=== PATIENT | female | born 1945 | race Hispanic/Latino ===

== ENCOUNTER 2018-07-17 17:57 | Inpatient (IN) | payer MEDICARE ==
[2018-07-17] MEDS ORDERED: Sodium Chloride 0.9% 1,000 ML IV ONE (19:46)
--- NOTE | 2018-07-17 19:47 | C.PDOC ---
History Of Present Illness 72 year old female presents with RUQ pain for the past 2 days. Patient states the pain has been constant, not exacerbated or alleviated with anything; she tried tums with no relief. Denies fever, nausea, vomiting, diarrhea, or other symptoms. Patient has no Hx of similar complaints, Hx of liver or gall bladder disease, or Hx of abdominal surgery. Time Seen by Provider: 07/17/18 19:17 Chief Complaint (Nursing): Abdominal Pain History Per: Patient History/Exam Limitations: no limitations Onset/Duration Of Symptoms: Days (2) Current Symptoms Are (Timing): Still Present Location Of Pain/Discomfort: RUQ Radiation Of Pain To:: None Quality Of Discomfort: Unable To Describe Associated Symptoms: denies: Fever, Nausea, Vomiting, Diarrhea Exacerbating Factors: None Alleviating Factors: None Recent travel outside of the [place]: No Abnormal Vaginal Bleeding: No Past Medical History Reviewed: Historical Data, Nursing Documentation, Vital Signs Vital Signs: Last Vital Signs Temp 98.3 F 07/17/18 17:58 Pulse 91 H 07/17/18 17:58 Resp 18 07/17/18 17:58 BP 168/88 H 07/17/18 17:58 Pulse Ox 96 07/17/18 17:58 - Medical History PMH: HTN, Mitral Valve Prolapse Family History: States: Unknown Family Hx - Social History Hx Alcohol Use: No Hx Substance Use: No - Immunization History Hx Tetanus Toxoid Vaccination: Yes Hx Influenza Vaccination: Yes Hx Pneumococcal Vaccination: Yes Review Of Systems Constitutional: Negative for: Fever, Chills Cardiovascular: Negative for: Chest Pain, Palpitations Respiratory: Negative for: Cough, Shortness of Breath Gastrointestinal: Positive for: Abdominal Pain. Negative for: Nausea, Vomiting, Diarrhea Genitourinary: Negative for: Dysuria, Hematuria Musculoskeletal: Negative for: Back Pain Skin: Negative for: Rash Neurological: Negative for: Weakness, Numbness Physical Exam - Physical Exam Appears: Non-toxic Skin: Normal Color, Warm Head: Atraumatic, Normacephalic Eye(s): bilateral: Normal Inspection Oral Mucosa: Moist Neck: Normal, Supple Chest: Symmetrical, No Tenderness Cardiovascular: Rhythm Regular Respiratory: Normal Breath Sounds, No Rales, No Rhonchi, No Wheezing Gastrointestinal/Abdominal: Soft, Tenderness (right sided), No Guarding, No Rebound Back: No CVA Tenderness Neurological/Psych: Oriented x3, Normal Speech ED Course And Treatment - Laboratory Results Result Diagrams: 07/17/18 20:01 07/17/18 20:01 O2 Sat by Pulse Oximetry: 96 (Room air) Pulse Ox Interpretation: Normal - CT Scan/US CT abd/pel Other Rad Studies (CT/US): Read By Radiologist, Radiology Report Reviewed CT/US Interpretation: EXAM: CT Abdomen and Pelvis with IV contrast. CLINICAL HISTORY: Abd pain. TECHNIQUE: Axial computed tomography images of the abdomen and pelvis with intravenous contrast. 0.00 mGy-cm. CONTRAST: With; 100MLS OMNI 350. COMPARISON: None provided. FINDINGS: LUNG BASES: 7 mm nodule in the right lower lobe posteriorly on series 2, image 11. Per Fleischner 2017 guidelines, This could be followed up in approximately 6 months if clinically indicated. LIVER: There is diffuse fatty infiltration of liver. GALLBLADDER AND BILE DUCTS: The gallbladder appears within normal limits. No radioopaque gallstones are seen. No biliary ductal dilatation is evident. PANCREAS: Unremarkable. SPLEEN: Small splenule is noted in the left upper quadrant. ADRENAL GLANDS: Unremarkable. KIDNEYS, URETERS, AND BLADDER: Bladder is predominately decompressed, somewhat limiting evaluation. STOMACH AND BOWEL: There is a moderately large hiatal hernia containing a significant portion of the stomach. The stomach is predominantly decompressed which somewhat limits evaluation. Wall thickening versus decompression involving portions of the rectum. Is difficult to exclude a small mass in this region. Consider direct visualization with colonoscopy or followup imaging if indicated. There is a short segment of wall thickening and pericolonic inflammation at the hepatic flexure of the colon. This may represent focal colitis, diverticulitis, or mass with secondary inflammation. Please correlate clinically. If indicated, this could be further evaluated with colonoscopy or followup imaging after appropriate antimicrobial therapy as indicated. No evidence for bowel obstruction. APPENDIX: No evidence of acute appendicitis on CT examination. PERITONEUM: No free fluid. No free air. LYMPH NODES: No lymphadenopathy is evident. REPRODUCTIVE: The uterus is atrophic or absent. VASCULATURE: Mild atherosclerotic calcification of the abdominal aorta and branches. BONES: Mild multilevel degenerative spine changes. IMPRESSION: 1. There is a moderately large hiatal hernia containing a significant portion of the stomach. 2. 7 mm nodule in the right lower lobe posteriorly on series 2, image 11. Per Fleischner 2017 guidelines, This could be followed up in approximately 6 months if clinically indicated. 3. There is diffuse fatty infiltration of liver. 4. Wall thickening versus decompression involving portions of the rectum. Is difficult to exclude a small mass in this region. Consider direct visualization with colonoscopy or followup imaging if indicated. 5. There is a short segment of wall thickening and pericolonic inflammation at the hepatic flexure of the colon. This may represent focal colitis, diverticulitis, or mass with secondary inflammation. Please correlate clinically. If indicated, this could be further evaluated with colonoscopy or followup imaging after appropriate antimicrobial therapy as indicated. 6. Additional and incidental findings as described above. Medical Decision Making Medical Decision Making: Plan: * CT abd/pel * Blood work * IV fluids * Toradol Labs and CT reviewed, results discussed with patient including need for colonoscopy and followup for RLL lung nodule. She states that pain has eased but she is still concerned and feels uncomfortable going home. Will admit for further evaluation. Case discussed with Dr. Escobar, medicine international affairs vice president, who accepts patient for admission. Zosyn ivpb ordered for possible colitis/diverticulitis as noted on CT, although patient reports that her pain is more right sided. Disposition - Disposition Disposition: HOSPITALIZED Disposition Time: 22:19 Condition: GOOD Forms: [facility] (Romansh) - Clinical Impression Clinical Impression: Abdominal pain - Scribe Statement The provider has reviewed the documentation as recorded by the Scribe Rodolfo Medrano All medical record entries made by the Patriceibe were at my direction and personally dictated by me. I have reviewed the chart and agree that the record accurately reflects my personal performance of the history, physical exam, medical decision making, and the department course for this patient. I have also personally directed, reviewed, and agree with the discharge instructions and disposition.
[2018-07-17] MEDS ORDERED: Sodium Chloride 0.9% 1,000 ML ONE (20:03)
[2018-07-17 20:08] LABS: BASO % 0.5 % (0.0-2.0); EOS # 0.1 K/uL (0.0-0.7); EOS % 0.9 % (0.0-4.0); HEMOGLOBIN 12.9 g/dL (11.0-16.0); LYMPH # 1.2 K/uL (1.0-4.3); LYMPH % 16.1 % (20.0-40.0); MEAN CELL VOLUME 86.6 fL (81.0-99.0); MEAN CORPUSCULAR HEMOGLOBIN 28.6 pg (27.0-31.0); MEAN PLATELET VOLUME 8.6 fL (7.2-11.7); MONO # 0.4 K/uL (0.0-0.8); MONO % 5.5 % (0.0-10.0); NEUT # 5.7 K/uL (1.8-7.0); NRBC % 0.1 % (0.0-2.0); RBC 4.52 Mil/uL (3.80-5.20); RED CELL DISTRIBUTION WIDTH 14.5 % (11.5-14.5); WHITE BLOOD COUNT 7.3 K/uL (4.8-10.8)
[2018-07-17 20:29] LABS: ALB/GLOB RATIO 1.1 (1.0-2.1); ALBUMIN 4.4 g/dL (3.5-5.0); ALT/SGPT 33 U/L (9-52); AST/SGOT 43 U/L (14-36); BLOOD UREA NITROGEN 15 mg/dL (7-17); CALCIUM 9.7 mg/dl (8.6-10.4); GFR NON-AFRICAN AMERICAN > 60; LIPASE 64 U/L (23-300)
[2018-07-17] MEDS ORDERED: Iohexol 350mg/ml 100 ML ONE (20:49)
[2018-07-17] MEDS ORDERED: Piperacillin/Tazobact 3.375 gm 100 ML IVPB STA (22:20)
[2018-07-17] MEDS ORDERED: HYDROmorphone 1 mg/ml ISec IVP PRN (22:23)
[2018-07-17] MEDS ORDERED: Piperacillin/Tazobact 3.375 gm 100 ML IVPB ONE (22:40)
[2018-07-17] MEDS ORDERED: metroNIDAZOLE IV 500 mg/100 ml 500 MG/100 ML BAG ONE (23:22)
[2018-07-17] MEDS: metroNIDAZOLE IV 500 mg/100 ml 500 MG/100 ML BAG IVPB SCH (23:23)
[2018-07-18] MEDS ORDERED: Ciprofloxacin 400mg/200ml D5W 400 MG/200 ML BAG IVPB ONE (00:33)
[2018-07-18] MEDS: Ciprofloxacin 400mg/200ml D5W 400 MG/200 ML BAG IVPB SCH ×3 (01:20→22:25)
[2018-07-18] MEDS: metroNIDAZOLE IV 500 mg/100 ml 500 MG/100 ML BAG IVPB SCH ×3 (06:29→22:24)
--- NOTE | 2018-07-18 07:35 | CP.PCM.PN ---
Subjective - Date & Time of Evaluation Date of Evaluation: 07/18/18 Time of Evaluation: 07:29 - Subjective Subjective: PGY-[address] Escobar's service Pt seen and examined at bedside. Nursing reports no acute events overnight. She reports her abdominal pain has improved since starting antibiotics. Rates pain as 2-3/10, and remains right sided in location. No vomiting or diarrhea overnight. __ Patient is a 72 yo female with PMHx of HTN presenting yesterday with right sided abdominal pain. States pain came on suddenly two days ago, and has been constantly located on right side of abdomen. Attempted OTC antacids without relief. Denies fever, chills, blood per rectum, diarrhea, or vomiting. Objective - Vital Signs/Intake and Output Vital Signs (last 24 hours): Temp Pulse Resp BP Pulse Ox 97.5 F L 73 20 103/65 94 L 07/18/18 02:20 07/18/18 02:20 07/18/18 02:20 07/18/18 02:20 07/18/18 02:20 - Medications Medications: Current Medications Hydromorphone HCl (Dilaudid) 1 mg IVP Q6H PRN PRN Reason: Pain, severe (8-10) Ciprofloxacin (Cipro 400mg/200ml Dsw) 400 mg in 200 mls @ 133 mls/hr IVPB Q12H DEANDRE; Protocol Last Admin: 07/18/18 01:20 Dose: 133 mls/hr Metronidazole (Flagyl) 500 mg in 100 mls @ 100 mls/hr IVPB Q8H DEANDRE; Protocol Last Admin: 07/18/18 06:29 Dose: 100 mls/hr Zolpidem Tartrate (Ambien) 5 mg PO HS PRN PRN Reason: Insomnia - Labs Labs: 07/17/18 20:01 07/17/18 20:01 - Constitutional Appears: Non-toxic, No Acute Distress - Head Exam Head Exam: ATRAUMATIC, NORMAL INSPECTION - Eye Exam Eye Exam: EOMI. absent: Scleral icterus Pupil Exam: PERRL - ENT Exam ENT Exam: Mucous Membranes Moist - Neck Exam Neck Exam: Full ROM - Respiratory Exam Respiratory Exam: Clear to Ausculation Bilateral, NORMAL BREATHING PATTERN. absent: Decreased Breath Sounds - Cardiovascular Exam Cardiovascular Exam: REGULAR RHYTHM, +S1, +S2 - GI/Abdominal Exam GI & Abdominal Exam: Soft, Tenderness (Right sided ), Normal Bowel Sounds. absent: Distended, Guarding - Extremities Exam Extremities Exam: Normal Inspection. absent: Pedal Edema - Back Exam Back Exam: absent: CVA tenderness (L), CVA tenderness (R) - Neurological Exam Neurological Exam: Alert, Awake, Oriented x3 - Psychiatric Exam Psychiatric exam: Normal Affect, Normal Mood - Skin Skin Exam: Normal Color, Warm Assessment and Plan - Assessment and Plan (Free Text) Plan: Colitis/Diverticulitis? Admit to med/surg Afebrile, Ct A/P (07/17/18): 1. There is a moderately large hiatal hernia containing a significant portion of the stomach. 2. 7 mm nodule in the right lower lobe posteriorly on series 2, image 11. Per Fleischner 2017 guidelines, This could be followed up in approximately 6 months if clinically indicated. 3. There is diffuse fatty infiltration of liver. 4. Wall thickening versus decompression involving portions of the rectum. Is difficult to exclude a small mass in this region. Consider direct visualization with colonoscopy or followup imaging if indicated. 5. There is a short segment of wall thickening and pericolonic inflammation at the hepatic flexure of the colon. This may represent focal colitis, diverticulitis, or mass with secondary inflammation. Please correlate clinically. If indicated, this could be further evaluated with colonoscopy or followup imaging after appropriate antimicrobial therapy as indicated Lipase 64 Dr. Mcgill, GI - help appreciated -f/u reccs Cipro 400mg IV Q12H (Start 07/17/18; Day 2) Metronidazole 500mg IV QQ8H (start 07/17/18; Day 2) -Zosyn ONCE IN ED Hydromorphone 1mg IV Q6H PRN Lung nodule, RLL Visualized on CT above f/u CT in 6 months per radiology recommendation Fatty Liver Disease Visualized on CT above AST 43, ALT 33 Hiatal hernia/GERD Seen on CT imaging Protonix 40mg PO Insomnia Ambien 5mg PO HS PPX Liquid Diet Protonix 40mg PO SCDs Michael Castaneda PGY-[address] Escobar
--- NOTE | 2018-07-18 10:31 | CT ---
Date of service: 2018-07-17 21:18:20 PROCEDURE: CT scan abdomen pelvis HISTORY: Abdominal pain COMPARISON: None. TECHNIQUE: Contiguous axial images of the abdomen and pelvis performed in standard fashion following intravenous injection of approximately 100 cc Omnipaque 350 contrast material. Additional 2D sagittal and coronal reformats generated. Radiation dose: Total exam DLP = 471.17 mGy-cm. This CT exam was performed using one or more of the following dose reduction techniques: Automated exposure control, adjustment of the mA and/or kV according to patient size, and/or use of iterative reconstruction technique. FINDINGS: LOWER THORAX: Heart size within range of normal. No significant pericardial effusion. There is a large hiatal hernia. There appears to be mild linear atelectasis and or scarring seen both lung bases including the middle lobe and lingular regions. Additionally, there is an approximately 9 mm elliptical shaped pleural-based nodule which appears to be partially surrounded by a small bleb. Follow-up CT scan of the chest recommended for further evaluation. Clear without focal consolidation. Some minimal LIVER: Liver exhibits relatively normal size with mild diffuse fatty hepatic infiltration. No obvious hepatic mass collection or calcification. Portal and splenic veins are opacified. GALLBLADDER AND BILE DUCTS: Gallbladder physiologically distended. No evidence of intraluminal gallbladder calculi. PANCREAS: Pancreas appears slightly atrophic and fatty replaced. There are no pancreatic masses collections or calcifications. SPLEEN: Unremarkable. No splenomegaly. Small splenule seen adjacent to the anteromedial and inferior main body of the spleen. ADRENALS: No adrenal lesions are identified. KIDNEYS AND URETERS: Kidneys demonstrate relatively symmetric nephrograms. No evidence of nephrolithiasis or hydronephrosis. BLADDER: Urinary bladder is physiologically distended. No evidence of intraluminal urinary bladder calculi. REPRODUCTIVE: Hysterectomy. APPENDIX: Appendix is not seen with certainty however no evidence to suggest acute appendicitis. BOWEL: Evaluation of the bowel is slightly limited due to the lack of oral contrast material. As mentioned above, there is a large hiatal hernia. Visualized loops of small bowel exhibit normal contour and caliber. No evidence of acute mechanical small bowel obstruction. There is wall thickening of the mid and distal ascending colon/hepatic flexure and proximal transverse colon with surrounding mesenteric infiltration and most likely representing a nonspecific colitis or less likely diverticulitis however follow-up CT scan following treatment to assess for resolution and exclude the possibility of an invasive wall lesion including but not limited to colon carcinoma. PERITONEUM: No gross free intraperitoneal air. Tiny fat containing umbilical hernia. Small bilateral fat containing inguinal hernias. LYMPH NODES: Unremarkable. No enlarged lymph nodes. VASCULATURE: Unremarkable. No aortic aneurysm. Minimal aortic atherosclerotic calcification or mural plaque present. BONES: Minor multilevel degenerative spondylosis of the lower thoracic and lumbar spine. There are no acute compression fractures no retropulsed fragments. OTHER FINDINGS: None. IMPRESSION: Localized wall thickening and surrounding infiltration involving short segment of the mid to distal at ascending colon and hepatic flexure and proximal transverse colon. Findings likely represent a colitis or less likely diverticulitis however intrinsic/invasive wall lesion including but not limited to colon carcinoma not excluded. Repeat CT scan following treatment recommended to assess resolution. 9 mm nodule right lung base. Recommend follow-up CT scan of the chest further evaluation. Large hiatal hernia. Mild diffuse fatty hepatic infiltration. This report was placed in PA review folder for follow up
[2018-07-18 11:10] LABS: BASO % 0.4 % (0.0-2.0); EOS # 0.1 K/uL (0.0-0.7); EOS % 1.3 % (0.0-4.0); LYMPH # 1.1 K/uL (1.0-4.3); LYMPH % 20.4 % (20.0-40.0); MEAN CELL VOLUME 86.6 fL (81.0-99.0); MEAN CORPUSCULAR HEMOGLOBIN 29.1 pg (27.0-31.0); MEAN CORPUSCULAR HGB CONC 33.6 g/dL (33.0-37.0); MEAN PLATELET VOLUME 8.9 fL (7.2-11.7); MONO # 0.5 K/uL (0.0-0.8); MONO % 9.4 % (0.0-10.0); NEUT # 3.6 K/uL (1.8-7.0); NEUT % 68.5 % (50.0-75.0); RBC 4.1 Mil/uL (3.80-5.20); RED CELL DISTRIBUTION WIDTH 14.8 % (11.5-14.5); WHITE BLOOD COUNT 5.3 K/uL (4.8-10.8)
[2018-07-18 11:26] LABS: ALB/GLOB RATIO 1.1 (1.0-2.1); ALBUMIN 3.8 g/dL (3.5-5.0); ALT/SGPT 18 U/L (9-52); AST/SGOT 36 U/L (14-36); BLOOD UREA NITROGEN 12 mg/dL (7-17); CALCIUM 8.8 mg/dl (8.6-10.4); GFR NON-AFRICAN AMERICAN > 60
--- NOTE | 2018-07-19 01:33 | PN ---
DATE: 07/18/2018 LOCATION: Room 651, bed B. SUBJECTIVE: This is a 72-year-old female, seen and examined initially for GI consultation on 07/17/2008, reexamined again today with intermittent period of severe crampy abdominal pain without evidence of active bleeding. No reported chest pain, palpitation or increased shortness of breath. The entire chart is reviewed including but not limited to the most recent lab and radiology study results, and today's lab results showed normal CBC as well as normal SMA-18 with normal lipase level. Initially done CAT scan of the abdomen and pelvis was reviewed, and the case discussed with the staff at length. As per the official radiology study reports, inflammatory changes seen in the ascending colon and the hepatic flexure as well as the proximal transverse colon could be secondary to ischemic colitis and/or less likely diverticulosis/diverticulitis. A small lung nodule is seen. PHYSICAL EXAMINATION: GENERAL: A 72-year-old female, awake, alert, oriented. VITAL SIGNS: Afebrile with blood pressure 130/66, pulse of 92, respiratory rate 20-22. HEENT: Pale, dry oral mucous membrane. Nonicteric sclerae. LUNGS: Few scattered crepitation. Decreased air entry at bases. HEART: Positive S1 and S2. ABDOMEN: Soft with mild generalized tenderness. No mass or organomegaly. No rebound tenderness or guarding. EXTREMITIES: Without significant clubbing, cyanosis or edema. NEUROLOGIC: No reported new neurological deficits, sensory or motor. IMPRESSION: 1. Re-exacerbation of peptic ulcer disease. 2. Acute colitis. Again the possibility of ischemic colitis was raised. However, the patient has no reported rectal bleeding which again is somewhat ischemic colitis episodes. 3. Known history of hypertension. 4. Mitral valve prolapse by history. SUGGESTIONS: 1. Continue current management. 2. Intravenous antibiotics. 3. Endoscopic evaluation of the GI tract only if the patient's symptoms persist, otherwise close observation to follow including current IV antibiotics. Farrukh Loo MD
[2018-07-19] MEDS: metroNIDAZOLE IV 500 mg/100 ml 500 MG/100 ML BAG IVPB SCH ×3 (06:40→20:41)
[2018-07-19 07:14] LABS: BASO % 0.3 % (0.0-2.0); EOS % 0.2 % (0.0-4.0); HEMOGLOBIN 11.3 g/dL (11.0-16.0); LYMPH # 1.5 K/uL (1.0-4.3); LYMPH % 22.4 % (20.0-40.0); MEAN CELL VOLUME 85.9 fL (81.0-99.0); MEAN CORPUSCULAR HEMOGLOBIN 29.1 pg (27.0-31.0); MEAN CORPUSCULAR HGB CONC 33.9 g/dL (33.0-37.0); MONO # 0.5 K/uL (0.0-0.8); MONO % 7.8 % (0.0-10.0); NEUT # 4.8 K/uL (1.8-7.0); NEUT % 69.3 % (50.0-75.0); NRBC % 0.1 % (0.0-2.0); RBC 3.87 Mil/uL (3.80-5.20); RED CELL DISTRIBUTION WIDTH 14.9 % (11.5-14.5); WHITE BLOOD COUNT 6.9 K/uL (4.8-10.8)
[2018-07-19 07:18] LABS: BLOOD UREA NITROGEN 12 mg/dL (7-17); CALCIUM 8.9 mg/dl (8.6-10.4); GFR NON-AFRICAN AMERICAN > 60
[2018-07-19 07:19] LABS: INR 1.2; PROTHROMBIN TIME 12.9 SECONDS (9.7-12.2)
[2018-07-19] MEDS: Ciprofloxacin 400mg/200ml D5W 400 MG/200 ML BAG IVPB SCH ×2 (10:08→22:50)
[2018-07-19] MEDS: Pantoprazole 40 mg EC Tab PO SCH (10:09)
--- NOTE | 2018-07-19 10:28 | PN ---
DATE: 07/19/2018 LOCATION: 651, bed B. SUBJECTIVE: This is a 72-year-old female seen and examined in rounds with complaint of still right sided abdominal pain, persistent nausea with dyspepsia of unclear etiology, but no reported active bleeding, no chest pain or palpitation. The entire chart is reviewed including, but not limited to the most recent lab and radiology study results, current and The previous medication list. Today's lab results still pending. The patient had been on Reglan p.r.n., to be placed on 5 mg IV every 6 hours, keeping in mind that the patient had abnormal CAT scan of the abdomen and pelvis. PHYSICAL EXAMINATION: GENERAL: A 72-year-old female appeared to be awake, alert, oriented. VITAL SIGNS: Afebrile, blood pressure 116/66, heart rate of 96, respiratory rate 20 to 22. HEENT: Pale, dry, oral mucous membrane. Nonicteric sclerae. LUNGS: Few scattered crepitations. Decreased air entry at bases. HEART: Positive S1 and S2. ABDOMEN: Soft. Bowel sounds are present with mid epigastric as well as right upper and middle quadrant tenderness. No mass or organomegaly. No rebound tenderness or guarding. IMPRESSION: 1. Re-exacerbation of peptic ulcer disease to rule out gastric versus duodenal ulcer. 2. Abnormal CAT scan of abdomen and pelvis indicative of acute colitis, to rule out ischemic colitis, to rule out an early phase of inflammatory bowel disease. 3. Known history of hypertension. 4. Mitral valve prolapse by history. SUGGESTIONS: 1. Continue current management. 2. Change Reglan . 3. Cancer markers. 4. Endoscopic evaluation of GI tract when the patient is more stable clinically and after IV antibiotics to be given. Further recommendations to follow. Farrukh Loo MD
[2018-07-20] MEDS: metroNIDAZOLE IV 500 mg/100 ml 500 MG/100 ML BAG IVPB SCH ×3 (06:14→21:44)
[2018-07-20] MEDS ORDERED: Bisacodyl 5mg EC Tab PO ONE (08:45)
[2018-07-20] MEDS: Pantoprazole 40 mg EC Tab PO SCH (09:30)
[2018-07-20] MEDS: Ciprofloxacin 400mg/200ml D5W 400 MG/200 ML BAG IVPB SCH ×2 (09:31→21:43)
--- NOTE | 2018-07-20 09:53 | PN ---
DATE: 07/20/2018 LOCATION: 651, bed B. SUBJECTIVE: This 72-year-old female seen and examined early in rounds with a recurrent episode of abdominal pain and nausea with less oral intake and abdominal mild distention but no reported active bleeding, chest pain, shortness of breath or palpitation. The entire chart is reviewed including but not limited to the most recent lab and radiology study results, current and the previous medication list, current and the previous medical events and today's lab results still pending. However, the patient still has low hematocrit with mildly increased PT to 12.9 with normal cancer markers. PHYSICAL EXAMINATION: GENERAL: A 72-year-old female. VITAL SIGNS: Afebrile with pulse of 102, respiratory rate 20 to 22, blood pressure 144/70. HEENT: Showed pale, dry oral mucous membrane. Nonicteric sclerae. LUNGS: Few scattered crepitation. Decreased air entry at bases. HEART: Positive S1 and S2. ABDOMEN: Soft with mild generalized tenderness, numbness or organomegaly. No rebound tenderness or guarding but midepigastric and right lower quadrant and right mid quadrant tenderness. EXTREMITIES: Without significant clubbing or edema. NEUROLOGIC: No reported new focal deficit and no reported neurological sensory or motor deficits. IMPRESSION: 1. Re-exacerbation of peptic ulcer disease, to rule out gastric versus duodenal ulcer. 2. Known history of hypertension. 3. Abnormal CAT scan of the abdomen and pelvis to rule out possible early stage of irritable bowel disease versus ischemic colitis, less likely. 4. Known history of mitral valve prolapse. SUGGESTIONS: 1. Agree with your plan. 2. Endoscopic evaluation of the upper GI tract followed by the lower GI tract after adequate preparation and when the patient is more stable clinically. 3. Further recommendations to follow post endoscopy. Farrukh Loo MD
--- NOTE | 2018-07-21 08:37 | CP.PCM.PN ---
Subjective - Date & Time of Evaluation Date of Evaluation: 07/21/18 Time of Evaluation: 08:30 - Subjective Subjective: PGY-[address] Escobar's service Pt seen and examined at bedside. Nursing reports no acute events overnight. Patient found sitting comfortably on her bed. She states her abdominal pain has "nearly resolved" and denies nausea or vomiting overnight. Tolerating liquid diet over the weekend, and denies blood in stool, fever, or chills. Pt for endoscopy this AM. Objective - Vital Signs/Intake and Output Vital Signs (last 24 hours): Temp Pulse Resp BP Pulse Ox 98.7 F 100 H 20 160/83 H 98 07/21/18 05:00 07/21/18 05:00 07/21/18 05:00 07/21/18 05:00 07/21/18 05:00 - Medications Medications: Current Medications Hydromorphone HCl (Dilaudid) 1 mg IVP Q6H PRN PRN Reason: Pain, severe (8-10) Last Admin: 07/18/18 11:18 Dose: 1 mg Metoclopramide HCl (Reglan) 5 mg IVP Q6H DEANDRE Last Admin: 07/21/18 02:00 Dose: 5 mg Pantoprazole Sodium (Protonix Ec Tab) 40 mg PO DAILY DEANDRE Last Admin: 07/20/18 09:30 Dose: 40 mg Zolpidem Tartrate (Ambien) 5 mg PO HS PRN PRN Reason: Insomnia Last Admin: 07/20/18 21:40 Dose: 5 mg - Labs Labs: 07/19/18 06:49 07/19/18 06:49 PT 12.9 SECONDS (9.7-12.2) H 07/19/18 06:49 INR 1.2 07/19/18 06:49 APTT 30 SECONDS (21-34) 07/19/18 06:49 - Additional Findings Additional findings: - Constitutional Appears: Non-toxic, No Acute Distress - Head Exam Head Exam: ATRAUMATIC, NORMAL INSPECTION - Eye Exam Eye Exam: EOMI. absent: Scleral icterus Pupil Exam: PERRL - ENT Exam ENT Exam: Mucous Membranes Moist - Neck Exam Neck Exam: Full ROM - Respiratory Exam Respiratory Exam: Clear to Auscultation Bilateral, NORMAL BREATHING PATTERN. absent: Decreased Breath Sounds - Cardiovascular Exam Cardiovascular Exam: REGULAR RHYTHM, +S1, +S2 - GI/Abdominal Exam GI & Abdominal Exam: Soft, Mild Tenderness (Right sided ), Normal Bowel Sounds. absent: Distended, Guarding - Extremities Exam Extremities Exam: Normal Inspection. absent: Pedal Edema - Back Exam Back Exam: absent: CVA tenderness (L), CVA tenderness (R) - Neurological Exam Neurological Exam: Alert, Awake, Oriented x3 - Psychiatric Exam Psychiatric exam: Normal Affect, Normal Mood - Skin Skin Exam: Normal Color, Warm Assessment and Plan - Assessment and Plan (Free Text) Plan: Colitis/Exacerbation of PUD/IBD? Admit to med/surg Ct A/P (07/17/18): 1. There is a moderately large hiatal hernia containing a significant portion of the stomach. 2. 7 mm nodule in the right lower lobe posteriorly on series 2, image 11. Per Fleischner 2017 guidelines, This could be followed up in approximately 6 months if clinically indicated. 3. There is diffuse fatty infiltration of liver. 4. Wall thickening versus decompression involving portions of the rectum. Is difficult to exclude a small mass in this region. Consider direct visualization with colonoscopy or followup imaging if indicated. 5. There is a short segment of wall thickening and pericolonic inflammation at the hepatic flexure of the colon. This may represent focal colitis, diverticulitis, or mass with secondary inflammation. Please correlate clinically. If indicated, this could be further evaluated with colonoscopy or followup imaging after appropriate antimicrobial therapy as indicated Lipase 64 Dr. Mcgill, GI - help appreciated EGD (07/21/18): Reflux esophagitis. Large hiatal hernia. Non-bleeding erosive gastropathy. Erythematous mucosa in pre-pyloric region of stomach. Non-bleeding gastric ulcer. - recommendation: clear liquid diet, sucralafate 1 gm PO QID x 8 weeks, colonoscopy tomorrow Stop Cipro 400mg IV Q12H (total 4 days) Stop Metronidazole 500mg IV QQ8H (total 4 days) -Zosyn ONCE IN ED Hydromorphone 1mg IV Q6H PRN Reglan 5mg IV Q6H PRN nausea Protonix 40mg PO Daily HTN Restart home Norvasc 2.5 mg PO daily HOLD home Metoprolol 200mg PO daily Lung nodule, RLL Visualized on CT above f/u CT in 6 months per radiology recommendation Fatty Liver Disease Visualized on CT above AST 43, ALT 33 Hiatal hernia/GERD Seen on CT imaging Protonix 40mg PO Insomnia Ambien 5mg PO HS PPX Liquid Diet Protonix 40mg PO Daily, Sucralafate 1gm PO QID SCDs Disposition: Pt for colonoscopy tomorrow. Michael Castaneda PGY-[address] Escobar
[2018-07-21] MEDS ORDERED: Lactated Ringer's 1,000 ML IV ONE (10:50)
[2018-07-21] MEDS ORDERED: Propofol 10 mg/ml Inj (20 ML) ONE (10:56)
[2018-07-21] MEDS ORDERED: Lidocaine Hydrochloride 5 ML INJ ONE (11:04)
[2018-07-21] MEDS: Lactated Ringer's 500 ML IV SCH ×2 (12:45→18:55)
[2018-07-21] MEDS: Pantoprazole 40 mg EC Tab PO SCH (12:59)
[2018-07-21 13:46] LABS: BASO % 0.6 % (0.0-2.0); EOS % 0.5 % (0.0-4.0); HEMOGLOBIN 12.8 g/dL (11.0-16.0); LYMPH # 1.3 K/uL (1.0-4.3); MEAN CELL VOLUME 85.9 fL (81.0-99.0); MEAN CORPUSCULAR HEMOGLOBIN 28.7 pg (27.0-31.0); MEAN CORPUSCULAR HGB CONC 33.4 g/dL (33.0-37.0); MEAN PLATELET VOLUME 8.8 fL (7.2-11.7); MONO # 0.6 K/uL (0.0-0.8); MONO % 7.8 % (0.0-10.0); NEUT # 5.1 K/uL (1.8-7.0); NEUT % 72.1 % (50.0-75.0); RBC 4.46 Mil/uL (3.80-5.20); RED CELL DISTRIBUTION WIDTH 14.9 % (11.5-14.5); WHITE BLOOD COUNT 7.1 K/uL (4.8-10.8)
[2018-07-21 14:00] LABS: ALB/GLOB RATIO 1.2 (1.0-2.1); ALBUMIN 4.2 g/dL (3.5-5.0); ALT/SGPT 27 U/L (9-52); AST/SGOT 45 U/L (14-36); BLOOD UREA NITROGEN 10 mg/dL (7-17); CALCIUM 9.4 mg/dl (8.6-10.4); GFR NON-AFRICAN AMERICAN > 60
[2018-07-21 17:34] VITALS: RESP 20
[2018-07-21] MEDS ORDERED: Peg-Electrolyte Oral Soln 4L (Golytely) PO ONE (20:42)
[2018-07-21] MEDS ORDERED: Bisacodyl 5mg EC Tab PO ONE (20:43)
[2018-07-22 07:11] LABS: EOS # 0.1 K/uL (0.0-0.7); HEMOGLOBIN 12.4 g/dL (11.0-16.0); LYMPH # 1.4 K/uL (1.0-4.3)
--- NOTE | 2018-07-22 07:22 | CP.PCM.PN ---
Subjective - Date & Time of Evaluation Date of Evaluation: 07/22/18 Time of Evaluation: 07:22 - Subjective Subjective: PGY-[address] Escobar's service Pt seen and examined at bedside. Nursing reports no acute events overnight. Patient found sitting comfortably drinking go-lytely at bedside. Patient states her right sided abd pain has improved to 0-1/10 in severity. States she feels residual "dull ache" in right lower quadrant occasionally but denies nausea, vomiting. Admits appropriate loose watery stool while on colon cleanse. Denies fever, chills, SOB, chest pain. Objective - Vital Signs/Intake and Output Vital Signs (last 24 hours): Temp Pulse Resp BP Pulse Ox 98.5 F 113 H 20 135/81 98 07/21/18 23:05 07/21/18 23:05 07/21/18 23:05 07/21/18 23:05 07/21/18 23:05 - Medications Medications: Current Medications Amlodipine Besylate (Norvasc) 2.5 mg PO Q24H [facility] Last Admin: 07/21/18 21:19 Dose: 2.5 mg Lactated Ringer's (Lactated Ringer's 500ml) 500 mls @ 75 mls/hr IV .Q6H40M [facility] Last Admin: 07/21/18 18:55 Dose: Not Given Metoclopramide HCl (Reglan) 5 mg IVP Q6H [facility] Last Admin: 07/22/18 01:20 Dose: 5 mg Pantoprazole Sodium (Protonix Ec Tab) 40 mg PO DAILY [facility] Last Admin: 07/21/18 12:59 Dose: 40 mg Sucralfate (Carafate Tab) 1 gm PO QID [facility] Last Admin: 07/21/18 19:00 Dose: Not Given Zolpidem Tartrate (Ambien) 5 mg PO HS PRN PRN Reason: Insomnia Last Admin: 07/20/18 21:40 Dose: 5 mg - Labs Labs: 07/21/18 13:43 07/21/18 13:43 PT 12.9 SECONDS (9.7-12.2) H 07/19/18 06:49 INR 1.2 07/19/18 06:49 APTT 30 SECONDS (21-34) 07/19/18 06:49 - Additional Findings Additional findings: - Constitutional Appears: Non-toxic, No Acute Distress - Head Exam Head Exam: ATRAUMATIC, NORMAL INSPECTION - Eye Exam Eye Exam: EOMI. absent: Scleral icterus Pupil Exam: PERRL - ENT Exam ENT Exam: Mucous Membranes Moist - Neck Exam Neck Exam: Full ROM - Respiratory Exam Respiratory Exam: Clear to Auscultation Bilateral, NORMAL BREATHING PATTERN. absent: Decreased Breath Sounds - Cardiovascular Exam Cardiovascular Exam: REGULAR RHYTHM, +S1, +S2 - GI/Abdominal Exam GI & Abdominal Exam: Soft, Minimal Tenderness to palpation in RLQ Normal Bowel Sounds. absent: Distended, Guarding, rebound - Extremities Exam Extremities Exam: Normal Inspection. absent: Pedal Edema - Back Exam Back Exam: absent: CVA tenderness (L), CVA tenderness (R) - Neurological Exam Neurological Exam: Alert, Awake, Oriented x3 - Psychiatric Exam Psychiatric exam: Normal Affect, Normal Mood - Skin Skin Exam: Normal Color, Warm Assessment and Plan - Assessment and Plan (Free Text) Plan: Colitis/Exacerbation of PUD/IBD? Admit to med/surg Ct A/P (07/17/18): 1. There is a moderately large hiatal hernia containing a significant portion of the stomach. 2. 7 mm nodule in the right lower lobe posteriorly on series 2, image 11. Per Fleischner 2017 guidelines, This could be followed up in approximately 6 months if clinically indicated. 3. There is diffuse fatty infiltration of liver. 4. Wall thickening versus decompression involving portions of the rectum. Is difficult to exclude a small mass in this region. Consider direct visualization with colonoscopy or followup imaging if indicated. 5. There is a short segment of wall thickening and pericolonic inflammation at the hepatic flexure of the colon. This may represent focal colitis, diverticulitis, or mass with secondary inflammation. Please correlate clinically. If indicated, this could be further evaluated with colonoscopy or followup imaging after appropriate antimicrobial therapy as indicated Lipase 64 Dr. Mcgill, GI - help appreciated EGD (07/21/18): Reflux esophagitis. Large hiatal hernia. Non-bleeding erosive gastropathy. Erythematous mucosa in pre-pyloric region of stomach. Non-bleeding gastric ulcer. - recommendation: sucralafate 1 gm PO QID x 8 weeks, colonoscopy today Stop Cipro 400mg IV Q12H (total 4 days) Stop Metronidazole 500mg IV QQ8H (total 4 days) -Zosyn ONCE IN ED Reglan 5mg IV Q6H PRN nausea Protonix 40mg PO Daily HTN Restart home Norvasc 2.5 mg PO daily HOLD home Metoprolol 200mg PO daily Lung nodule, RLL Visualized on CT above f/u CT in 6 months per radiology recommendation Fatty Liver Disease Visualized on CT above AST 43, ALT 33 Hiatal hernia/GERD Seen on CT imaging Protonix 40mg PO Insomnia Ambien 5mg PO HS PPX Liquid Diet Protonix 40mg PO Daily, Sucralafate 1gm PO QID SCDs Disposition: Pt for colonoscopy today. f/u results. possible discharge. Micheal Castaneda PGY-[address] Escobar
[2018-07-22 07:25] LABS: BLOOD UREA NITROGEN 10 mg/dL (7-17); CALCIUM 9.1 mg/dl (8.6-10.4); GFR NON-AFRICAN AMERICAN > 60
[2018-07-22 07:37] LABS: BASO % 0.6 % (0.0-2.0); EOS % 1.8 % (0.0-4.0); LYMPH % 19.6 % (20.0-40.0); MEAN CELL VOLUME 86.3 fL (81.0-99.0); MEAN CORPUSCULAR HEMOGLOBIN 28.7 pg (27.0-31.0); MEAN CORPUSCULAR HGB CONC 33.2 g/dL (33.0-37.0); MEAN PLATELET VOLUME 9.5 fL (7.2-11.7); MONO # 0.7 K/uL (0.0-0.8); MONO % 9.4 % (0.0-10.0); NEUT % 68.6 % (50.0-75.0); RBC 4.32 Mil/uL (3.80-5.20); RED CELL DISTRIBUTION WIDTH 14.6 % (11.5-14.5); WHITE BLOOD COUNT 7.3 K/uL (4.8-10.8)
[2018-07-22] MEDS ORDERED: Lactated Ringer's 500 ML IV ONE (11:33)
[2018-07-22] MEDS ORDERED: Propofol 10 mg/ml Inj (20 ML) ONE ×2 (11:42→12:05)
[2018-07-22 12:23] VITALS: PULSE 115; TEMP 98.3; O2SAT 97
[2018-07-22 12:48] VITALS: BP 99/63
[2018-07-22] MEDS ORDERED: Potassium Chloride 20 mEq ER Tab PO ONE (13:00)
--- NOTE | 2018-07-25 08:02 | DS ---
HISTORY OF PRESENT ILLNESS: The patient was admitted to the hospital with chief complaint of abdominal pain. The patient was started on antibiotics, CAT scan showed possible chronic pancreatic insufficiency, stranding in the colon. The patient was started on IV antibiotics. Seen by Dr. Mcgill, ____ hospital . DIAGNOSES: . PLAN: The patient discharged to be followed outpatient. Liz Escobar MD
== END 2018-07-22 14:36 | disposition home or self-care (01) | DRG 392 ==
LOC: C.ER 17:57 → C.9E 22:19 → C.6T 07-18 01:10
PROVIDERS: ADMIT Internal Medicine Pulmonary Disease; ATTEND Internal Medicine Pulmonary Disease
PROC: 0DB68ZX Excision of Stomach, Via Natural or Artificial Opening Endoscopic, Diagnostic (ICD-10-PCS; principal; 2018-07-21 10:50)
PROC: 0DBH8ZX Excision of Cecum, Via Natural or Artificial Opening Endoscopic, Diagnostic (ICD-10-PCS; 2018-07-22)
PROC: 0DBL8ZX Excision of Transverse Colon, Via Natural or Artificial Opening Endoscopic, Diagnostic (ICD-10-PCS; 2018-07-22)
DX: K58.9 Irritable bowel syndrome, unspecified (principal); K55.8 Other vascular disorders of intestine; K25.9 Gastric ulcer, unspecified as acute or chronic, without hemorrhage or perforation; D12.0 Benign neoplasm of cecum; D12.3 Benign neoplasm of transverse colon; K29.50 Unspecified chronic gastritis without bleeding; K44.9 Diaphragmatic hernia without obstruction or gangrene; K21.0 Gastro-esophageal reflux disease with esophagitis; I10 Essential (primary) hypertension; I34.1 Nonrheumatic mitral (valve) prolapse; K64.8 Other hemorrhoids; K64.4 Residual hemorrhoidal skin tags; K76.0 Fatty (change of) liver, not elsewhere classified